=== PATIENT | male | born 1955 | race Caucasian/White ===

== ENCOUNTER 2021-09-17 03:19 | Emergency (ER) | payer MEDICARE ==
[~2021-09-17] VITALS: Ht 177.8 cm; Wt 115.9 kg
--- NOTE | 2021-09-17 03:32 | PHYS DOC ---
General Adult EDM: Chief Complaint: MECHANICAL FALL HPI: HPI: 65-year-old male with medical history of hypertension, gout, hyperlipidemia and former tobacco use, presents to the ED with complaints of right shoulder pain stating he stubbed his toe on the carpet at home after drinking a couple shots of bourbon whiskey, reports his right shoulder feels dislocated. States the shoulder popped back in place in the ambulance but then dislocated shortly upon ED arrival. applied a shoulder sling. Reports history of falling on ice a few years ago with dislocation but did not require any medical attention, was able to spontaneously reduce. Is right-hand dominant. States he did not hit his head or lose consciousness. Does not take any anticoagulants. Review of Systems: Review of Systems: Constitutional: Denies fever or chills. [] Eyes: Denies change in visual acuity. [] HENT: Denies nasal congestion or sore throat. [] Respiratory: Denies cough or shortness of breath. [] Cardiovascular: Denies chest pain or edema. [] GI: Denies abdominal pain, nausea, vomiting, bloody stools or diarrhea. [] : Denies saddle anesthesia or incontinence Musculoskeletal: Denies back pain or flank pain. [] Integument: Denies rash or diaphoresis Neurologic: Denies headache or neck pain Endocrine: Denies polyuria or polydipsia. [] Lymphatic: Denies swollen glands. [] Psychiatric: Denies depression or anxiety. [] Heart Score: C/O Chest Pain: No Risk Factors: Risk Factors: DM, Current or recent (<one month) smoker, HTN, HLP, family history of CAD, obesity. Risk Scores: Score 0 - 3: 2.5% MACE over next 6 weeks - Discharge Home Score 4 - 6: 20.3% MACE over next 6 weeks - Admit for Clinical Observation Score 7 - 10: 72.7% MACE over next 6 weeks - Early Invasive Strategies Physical Exam: PE: Constitutional: Resting comfortably in ED stretcher, no acute distress, non- toxic appearance. HENT: Normocephalic, atraumatic, no signs of head trauma Eyes: Pupils equal and reactive, EOMI, conjunctiva normal, no discharge. Neck: Normal range of motion, supple, no midline neck pain Cardiovascular: S1/2 present, regular rhythm Lungs & Thorax: Speaking in full sentences, bilateral equal chest rise, no tachypnea or increased work of breathing Abdomen: soft, no tenderness, Skin: Warm, dry, no erythema, no rash. [] Back: No midline spinal step-offs or tenderness, no CVA tenderness. [] Extremities: Right shoulder anterior deformity, equal radial pulses, no cyanosis, median/radial/ulnar/axillary sensation intact Neurologic: Alert and oriented X 3, normal motor function, normal sensory function, no focal deficits noted. [] Psychologic: Affect normal, judgement normal, mood normal. [] EKG: EKG: [] Radiology/Procedures: Radiology/Procedures: IMAGING REPORT Signed PATIENT: BEAR MODI ACCOUNT: [id number] : 1955 LOCATION: ER AGE: 65 SEX: M EXAM STATUS: REG ER ORD. PHYSICIAN: NIDA WILKES DO REASON: right hsoulder pain PROCEDURE: SHOULDER 2+V RIGHT EXAM: XR SHOULDER_RIGHT 2+ VIEWS 09/17/2021 3:45 AM CLINICAL INDICATION: Right shoulder pain COMPARISON: None TECHNIQUE: 2 views of the right shoulder FINDINGS: There is anterior dislocation of the humerus relative to the glenoid. There is an osseous fragment or heterotopic ossification along the posterior glenoid. The acromioclavicular joint is normal. IMPRESSION: Anterior glenohumeral dislocation. Osseous fragment versus heterotopic ossification along the posterior glenoid. Electronically signed by: Yael Hahn MD (09/17/2021 4:51 AM) [facility] DICTATED and SIGNED BY: YAEL HAHN MD DATE: 09/17/21 [id number] IMAGING REPORT Signed PATIENT: BEAR MODI ACCOUNT: [id number] : 1955 LOCATION: ER AGE: 65 SEX: M EXAM STATUS: PRE ER ORD. PHYSICIAN: NIDA WILKES DO REASON: fall, right SHoulder PROCEDURE: CT HEAD AND CERVICAL SPINE WO EXAM: CT head and cervical spine without contrast INDICATION: Fall, right shoulder pain COMPARISON: None TECHNIQUE: Axial CT imaging through the head and cervical spine without intravenous contrast. Sagittal and coronal reformats were obtained. One or more of the following individualized dose reduction techniques were utilized for this examination: 1. Automated exposure control 2. Adjustment of the mA and/or kV according to patient size 3. Use of iterative reconstruction technique. FINDINGS: CT head: The ventricles and sulci are mildly enlarged. Simpson-white matter differentiation is maintained. There is no intracranial hemorrhage, acute infarct, or mass lesion. Basal cisterns are clear. The skull and scalp are intact. Paranasal sinuses and mastoid air cells are clear. Globes and orbits are intact.. CT cervical spine: No acute fracture. There is 2 mm anterolisthesis of the C2 on C3. Severe disc space narrowing at C3-C4 through C7-T1 with anterior osteophytes at most levels. There is multilevel uncovertebral joint proliferation. Mild facet arthrosis. Moderate and severe foraminal narrowing at multiple levels. There are small disc osteophyte complexes with mild canal narrowing at multiple levels. Prevertebral soft tissues normal. IMPRESSION: 1. No acute intracranial abnormality. 2. No acute osseous abnormality of the cervical spine. 3. Multilevel degenerative disc disease. Electronically signed by: Yael Hahn MD (09/17/2021 4:42 AM) [facility] DICTATED and SIGNED BY: YAEL HAHN MD DATE: 09/17/21 [id number] 0 Indication: Joint dislocation Consent: Consent was obtained. Procedure: The pre-reduction exam showed distal perfusion and neurologic function to be normal.. The patient was placed in the appropriate position. Anesthesia/pain control not required due to intoxicated state-patient did receive IV Dilaudid. Reduction of the right anterior shoulder was performed by traction/countertraction. Post reduction films were obtained and revealed satisfactory reduction. A post-reduction exam revealed distal perfusion and n eurologic function to be normal. The affected area was immobilized with shoulder immobilizer. Patient with normal axillary, median, radial and ulnar nerve sensation and equal radial pulses after reduction. Patient with full pain relief after reduction. The patient tolerated the procedure well. Complications: none. IMAGING REPORT Signed PATIENT: BEAR MODI ACCOUNT: [id number] : 1955 LOCATION: ER AGE: 65 SEX: M EXAM STATUS: REG ER ORD. PHYSICIAN: NIDA WILKES DO REASON: s/p reduction PROCEDURE: SHOULDER 2+V RIGHT EXAM: XR SHOULDER_RIGHT 2+ VIEWS 09/17/2021 6:03 AM CLINICAL INDICATION: Status post reduction COMPARISON: Right shoulder radiograph same day TECHNIQUE: 2 views of the right shoulder FINDINGS: There has been successful reduction of glenohumeral dislocation. Alignment is now normal. Acromioclavicular and glenohumeral joints are maintained. There is complete loss of the subacromial space suggesting chronic rotator cuff tear. The previously described osseous fragment or calcification along the glenoid is not well seen on this radiograph. IMPRESSION: Successful reduction of glenohumeral dislocation. Electronically signed by: Yael Hahn MD (09/17/2021 6:40 AM) [facility] DICTATED and SIGNED BY: YAEL HAHN MD DATE: 09/17/21 [id number] 0 Course & Med Decision Making: Course & Med Decision Making Pertinent Labs and Imaging studies reviewed. (See chart for details) Concern for accidental, intoxicated fall with right shoulder anterior dislocation, easily reduced without sedation. Patient neurovascular intact. CT imaging of the head shows no traumatic injury. Labs do show renal disease. Will discharge home with strict ED return precautions were given for head injury, shoulder dislocation, severe pain or neurologic deficits. Encouraged urgent outpatient follow-up with PMD for routine care, nephrology for renal sufficiency and orthopedic surgery for shoulder dislocation. Life-threatening processes were considered but are low suspicion at this time, given history, physical exam and ED workup. Pt was educated on all prescription medications and adverse effects. All patient's questions were answered and pt was stable at time of discharge. Life/limb-threatening differential includes but is not limited to, trauma (fracture, dislocation, laceration, compartment syndrome, tendon or ligament injury), neurovascular injury or deficitcva/tia, infection (osteomyelitis, abscess, cellulitis, septic arthritis, necrotizing fasciitis), deep vein t hrombosis, renal/cardiac/liver disease, medication adverse effect, lymphedema/anasarca, vascular insufficiency or malignancy, I have spoken with the patient and/or caregivers. I explained the patient's condition, diagnoses and treatment plan based on the information available to me at this time. I have answered the patient and/or caregiver's questions and addressed any concerns. The patient and/or caregivers have a good understanding of patient's diagnosis, condition and treatment plan as can be expected at this point. Vital signs have been stable. Patient's condition is stable and appropriate for discharge from the emergency department. Patient will pursue further outpatient evaluation with primary care physician or other designated or consulting physician as outlined in the discharge instructions. The patient and/or caregivers are agreeable to this plan of care and follow-up instructions have been explained in detail. The patient and/or caregivers have received these instructions in written form and have expressed an understanding of the discharge instructions. The patient and/or caregivers are aware that any significant change of condition or worsening of symptoms should prompt immediate return to this or the closest emergency department or call to 1Jose A Meeks Disclaimer: Jeanna Disclaimer: This electronic medical record was generated, in whole or in part, using a voice recognition dictation system. Departure Departure Impression: Primary Impression: Anterior dislocation of right shoulder Additional Impressions: Alcohol intoxication Renal insufficiency Disposition: 01 HOME / SELF CARE / HOMELESS Condition: STABLE Referrals: LAURO BARLOW MD Follow-up with your primary care physician in 24 to 48 hours OR FOLLOW UP WITH FAMILY MEDICINE: [address] [facility] [address] [place] [address] Patient Instructions: Acute Kidney Injury, Alcohol Intoxication, Shoulder Dislocation Additional Instructions: FOLLOW UP WITH ORTHOPEDICS: FOR DEFINITIVE MANAGEMENT of right shoulder dislocation Orthopaedic Surgery [address] [facility], [facility] [address] [place] [address] FOLLOW UP WITH NEPHROLOGY: FOR DEFINITIVE MANAGEMENT of renal sufficiency [facility] [place] [address] [place] [address] EMERGENCY DEPARTMENT GENERAL DISCHARGE INSTRUCTIONS Thank you for coming to [facility] Emergency Department (ED) today and trusting us with you care. We trust that you had a positive experience in our Emergency Department. If you wish to speak to the department management, you may call the Director at [phone]. YOUR FOLLOW UP INSTRUCTIONS ARE FOLLOWS: 1. Do you have a private Doctor? If you do not have a private doctor, please ask for a resource list of physicians or clinics that may be able to assist you with follow up care. 2. The Emergency Physicain has interpreted your x-rays. The X-Ray specialist will also review them. If there is a change in the findings, you will be notified in 48 hours when at all possible. 3. A lab test or culture has been done, your results will be reviewed and you will be notified if you need a change in treatment. ADDITIONAL INSTRUCTIONS AND INFORMATION: 1. Your care today has been supervised by a physician who is specially trained in emergency care. Many problems require more than one evaluation for a complete diagnosis and treatment. We recommend that you schedule your follow up appointment as recommended to ensure complete treatment of you illness or injury. If you are unable to obtain follow up care and continue to have a problem, or if your condition worsens, we recommend that you return to the ED. 2. We are not able to safely determine your condition over the phone nor are we able to give sound medical advice over the phone. For these safety reasons, if you call for medical advice we will ask you to come to the ED for further evaluation. 3. If you have any questions regarding these discharge instructions please call the ED at [phone]. SAFETY INFORMATION: In the interest of safety, wellness, and injury prevention; we encourage you to wear your sealbelt, if you smoke; quite smoking, and we encourage family to use a protective helmet for bicycling and other sporting events that present an increased risk for head injury. IF YOUR SYMPTOMS WORSEN OR NEW SYMPTOMS DEVELOP, OR YOU HAVE CONCERNS ABOUT YOUR CONDITION; OR IF YOUR CONDITION WORSENS WHILE YOU ARE WAITING FOR YOUR FOLLOW UP APPOINTMENT; EITHER CONTACT YOUR PRIMARY CARE DOCTOR, THE PHYSICIAN WHOSE NAME AND NUMBER YOU WERE GIVEN, OR RETURN TO THE ED IMMEDIATELY. NIDA WILKES DO Sep 17, 2021 03:32
[2021-09-17] MEDS ORDERED: HYDROmorphone 2 MG/ML INJ. IVP ONE (03:45)
[2021-09-17 04:38] LABS: BASO % 1 % (0-3); EOS # 0.3 x10^3/uL (0.0-0.7); EOS % 4 % (0-3); HEMATOCRIT 39.9 % (39.0-53.0); HEMOGLOBIN 13.1 g/dL (13.0-17.5); LYMPH # 1.5 x10^3/uL (1.0-4.8); LYMPH % 19 % (24-48); MEAN CORPUSCULAR HEMOGLOBIN 33 pg (25-35); MEAN CORPUSCULAR HGB CONC 33 g/dL (31-37); MEAN CORPUSCULAR VOLUME 100 fL (79-100); MONO # 0.4 x10^3/uL (0.0-1.1); MONO % 5 % (0-9); NEUT # 5.7 x10^3/uL (1.8-7.7); NEUT % 72 % (31-73); PLATELET COUNT 170 x10^3/uL (140-400); RED BLOOD COUNT 3.97 x10^6/uL (4.30-5.70)
--- NOTE | 2021-09-17 04:45 | RAD ---
EXAM: CT head and cervical spine without contrast INDICATION: Fall, right shoulder pain COMPARISON: None TECHNIQUE: Axial CT imaging through the head and cervical spine without intravenous contrast. Sagitta l and coronal reformats were obtained. One or more of the following individualized dose reduction techniques were utilized for this examinat ion: 1. Automated exposure control 2. Adjustment of the mA and/or kV according to patient size 3. Use of iterative reconstruction technique. FINDINGS: CT head: The ventricles and sulci are mildly enlarged. Simpson-white matter differentiation is maintained. There is no intracranial hemorrhage, acute infarct, or mass lesion. Basal cisterns are clear. The skull and scalp are intact. Paranasal sinuses and mastoid air cells are clear. Globes and orbits are intact.. CT cervical spine: No acute fracture. There is 2 mm anterolisthesis of the C2 on C3. Severe disc space narrowing at C3-C 4 through C7-T1 with anterior osteophytes at most levels. There is multilevel uncovertebral joint pro liferation. Mild facet arthrosis. Moderate and severe foraminal narrowing at multiple levels. There a re small disc osteophyte complexes with mild canal narrowing at multiple levels. Prevertebral soft ti ssues normal. IMPRESSION: 1. No acute intracranial abnormality. 2. No acute osseous abnormality of the cervical spine. 3. Multilevel degenerative disc disease. Electronically signed by: Yael Hahn MD (09/17/2021 4:42 AM) [facility]
[2021-09-17 04:47] LABS: CALCIUM 8.2 mg/dL (8.5-10.1); CREATININE 1.5 mg/dL (0.7-1.3); GFR 46.7
[2021-09-17 04:52] LABS: ALBUMIN 3.6 g/dL (3.4-5.0); TOTAL BILIRUBIN 0.4 mg/dL (0.2-1.0); TOTAL PROTEIN 7.2 g/dL (6.4-8.2)
--- NOTE | 2021-09-17 04:54 | RAD ---
EXAM: XR SHOULDER_RIGHT 2+ VIEWS 09/17/2021 3:45 AM CLINICAL INDICATION: Right shoulder pain COMPARISON: None TECHNIQUE: 2 views of the right shoulder FINDINGS: There is anterior dislocation of the humerus relative to the glenoid. There is an osseous fragment or heterotopic ossification along the posterior glenoid. The acromioclavicular joint is norm al. IMPRESSION: Anterior glenohumeral dislocation. Osseous fragment versus heterotopic ossification chet g the posterior glenoid. Electronically signed by: Yael Hahn MD (09/17/2021 4:51 AM) [place]
[2021-09-17] MEDS ORDERED: IV NORMAL SALINE 1000ML BAG 1,000 ML IV ONE (05:00)
[2021-09-17] MEDS ORDERED: KETAMINE HCL 500 MG/10 ML VIAL. IV ONE (05:30)
[2021-09-17 06:15] VITALS: BP 105/56
--- NOTE | 2021-09-17 06:42 | RAD ---
EXAM: XR SHOULDER_RIGHT 2+ VIEWS 09/17/2021 6:03 AM CLINICAL INDICATION: Status post reduction COMPARISON: Right shoulder radiograph same day TECHNIQUE: 2 views of the right shoulder FINDINGS: There has been successful reduction of glenohumeral dislocation. Alignment is now normal. Acromioclavicular and glenohumeral joints are maintained. There is complete loss of the subacromial s pace suggesting chronic rotator cuff tear. The previously described osseous fragment or calcification along the glenoid is not well seen on this radiograph. IMPRESSION: Successful reduction of glenohumeral dislocation. Electronically signed by: Yael Hahn MD (09/17/2021 6:40 AM) [facility]
[2021-09-17] MEDS ORDERED: ASPIRIN CHEWABLE 81 MG TABLET. PO ONE (19:15)
[2021-09-17] MEDS ORDERED: NITROGLYCERIN SUBLINGUAL 0.4 MG BOTTLE OF 25. SL PRN (19:15)
== END 2021-09-17 07:50 | disposition home or self-care (01) ==
LOC: ER 03:19
DX: S43.014A Anterior dislocation of right humerus, initial encounter (principal); I10 Essential (primary) hypertension; E78.5 Hyperlipidemia, unspecified; M10.9 Gout, unspecified; R51.9 Headache, unspecified; M54.2 Cervicalgia; Z87.891 Personal history of nicotine dependence; X50.9XXA Other and unspecified overexertion or strenuous movements or postures, initial encounter; Y93.89 Activity, other specified; Y92.89 Other specified places as the place of occurrence of the external cause; Y99.8 Other external cause status
CPT/HCPCS: 36415; 70450; 72125; 73030; 80053; 85025; 96374; 99285; G0480; J1170; J7030